=== PATIENT | male | born 1980 | race Caucasian/White ===

== ENCOUNTER 2018-11-07 00:52 | Emergency (ER) | payer OTHER ==
[~2018-11-07] VITALS: Ht 177.8 cm; Wt 117.0 kg
[2018-11-07 00:56] VITALS: BP 161/100; Ht 177.8 cm; Wt 117.0 kg
== END 2018-11-07 02:00 | disposition home or self-care (01) ==
LOC: ED 00:52
DX: S93.601A Unspecified sprain of right foot, initial encounter (principal); E11.9 Type 2 diabetes mellitus without complications; W01.0XXA Fall on same level from slipping, tripping and stumbling without subsequent striking against object, initial encounter; Y93.89 Activity, other specified; Y92.89 Other specified places as the place of occurrence of the external cause; Y99.8 Other external cause status

== ENCOUNTER 2018-12-05 04:20 | Emergency (ER) | payer OTHER ==
[~2018-12-05] VITALS: Ht 177.8 cm; Wt 113.4 kg
[2018-12-05 04:36] VITALS: Ht 177.8 cm; Wt 113.4 kg
[2018-12-05 07:23] VITALS: BP 135/77
== END 2018-12-05 07:23 | disposition home or self-care (01) ==
LOC: ED 04:20
DX: G40.909 Epilepsy, unspecified, not intractable, without status epilepticus (principal); E11.649 Type 2 diabetes mellitus with hypoglycemia without coma; Z98.890 Other specified postprocedural states
CPT/HCPCS: 82962; J1885; J3490; J7030